=== PATIENT | male | born 1965 | race African-American/Black ===

== ENCOUNTER 2017-06-19 00:07 | Emergency (ER) | payer SELFPAY ==
[~2017-06-19] VITALS: Ht 170.2 cm; Wt 72.7 kg
[2017-06-19 00:24] VITALS: BP 123/97
[2017-06-19] MEDS ORDERED: ALBU8HFA IH (00:31)
[2017-06-19] MEDS ORDERED: LURA40 PO (00:31)
[2017-06-19] MEDS ORDERED: BECL8.7A6 IH (10:27)
[2017-06-19] MEDS ORDERED: FLUT44HFA IH (10:27)
[2017-06-19] MEDS ORDERED: IPRAHFA IH (10:27)
== END 2017-06-19 01:27 | disposition left against medical advice (07) ==
LOC: EMS 00:08
DX: M79.644 Pain in right finger(s) (principal); J44.9 Chronic obstructive pulmonary disease, unspecified; F12.90 Cannabis use, unspecified, uncomplicated; X58.XXXA Exposure to other specified factors, initial encounter; Y93.89 Activity, other specified; Y92.89 Other specified places as the place of occurrence of the external cause; Y99.8 Other external cause status; Z53.21 Procedure and treatment not carried out due to patient leaving prior to being seen by health care provider

== ENCOUNTER 2017-06-19 10:18 | Emergency (ER) | payer OTHER ==
[~2017-06-19] VITALS: Ht 170.2 cm; Wt 72.7 kg
[~2017-06-19 10:18] MED LIST: ALBU8HFA IH; LURA40 PO
[2017-06-19 10:21] VITALS: BP 113/81
[2017-06-19] MEDS ORDERED: BECL8.7A6 IH (10:27)
[2017-06-19] MEDS ORDERED: FLUT44HFA IH (10:27)
[2017-06-19] MEDS ORDERED: IPRAHFA IH (10:27)
[2017-06-19] MEDS ORDERED: HYDROCODONE/ACETAMINOPHEN 5-325 MG TABLET PO ONE (12:30)
== END 2017-06-19 13:37 | disposition home or self-care (01) ==
LOC: EMS 10:24
DX: S63.614A Unspecified sprain of right ring finger, initial encounter (principal); S60.041A Contusion of right ring finger without damage to nail, initial encounter; J44.9 Chronic obstructive pulmonary disease, unspecified; J45.909 Unspecified asthma, uncomplicated; F12.10 Cannabis abuse, uncomplicated; Z87.891 Personal history of nicotine dependence; W54.8XXA Other contact with dog, initial encounter; Y93.K1 Activity, walking an animal; Y92.89 Other specified places as the place of occurrence of the external cause; Y99.9 Unspecified external cause status
CPT/HCPCS: 99284